=== PATIENT | female | born 1950 | race Caucasian/White ===

== ENCOUNTER 2017-11-07 09:29 | Emergency (ER) | payer OTHER ==
[2017-11-07 10:31] LABS: Bilirubin Small (Negative); Blood, Urine Large (Negative); Clarity Turbid (Clear); Glucose, Urine (Dipstick) Negative (Negative); Leukocyte Trace (Negative); Nitrite Negative (Negative); Protein, Urine (Dipstick) > or equal to 300 mg/dL (Neg-Trace); Specific Gravity, Urine 1.025 (1.005-1.030); Urobilinogen 0.2 mg/dL (0.2-1.0); pH, Urine 5.5 (5.0-9.0)
[2017-11-07 10:36] LABS: Hemoglobin 13.5 g/dL (12.0-16.0); Mean Corpuscular HGB CONC 34.9 g/dL (32.0-36.0); Mean Corpuscular Hemoglobin 29.8 pg (27.0-31.0); Mean Corpuscular Volume 85.4 fl (81.0-99.0); Mean Platelet Volume 5.7 fL (7.4-10.4); Platelet Count 337 thou/uL (130-400); RBC Distribution Width 11.7 % (11.5-14.5); Red Blood Cell (RBC) Count 4.54 mill/uL (4.20-5.40); White Blood Cell (WBC) Count 21.6 thou/uL (4.8-10.8)
[2017-11-07 10:37] LABS: ALT (SGPT) 14 U/L (8-55); AST (SGOT) 11 U/L (5-34); Albumin 3.9 g/dL (3.4-4.8); Alkaline Phosphatase 96 U/L (40-150); Anion Gap 20 mmol/L (10-20); BUN (Urea Nitrogen) 23 mg/dL (9.8-20.1); Bilirubin, Total 0.6 mg/dL (0.2-1.2); Calc. Creatinine Clearance 0 mL/min (70-130); Calcium 9.6 mg/dL (7.8-10.44); Carbon Dioxide 22 mmol/L (23-31); Chloride 100 mmol/L (98-107); Estimated GFR-MDRD 50; Globulin 3.2 g/dL (2.4-3.5); Glucose 239 mg/dL (80-115); Lipase 13 U/L (8-78); Potassium 3.6 mmol/L (3.5-5.1); Protein, Total 7.1 g/dL (6.0-8.3); Sodium 138 mmol/L (136-145)
[2017-11-07] MEDS ORDERED: Ondansetron HCl/PF 4 MG/2 ML Vial ONE (10:38)
[2017-11-07] MEDS ORDERED: Famotidine In NaCl 20 mg/50 ml Premix Bag ONE (10:38)
[2017-11-07 10:41] LABS: Bacteria/HPF 2+ HPF (None Seen); Crystals/HPF 1+ AMORPH URATES HPF (Negative); Squamous Epithelial 0-3 HPF (0-3)
[2017-11-07 10:54] LABS: Band 6 % (5-11); Lymphocytes 11 % (21-51); MDiff Complete? YES; Monocytes 2 % (0-10); Neutrophil 81 % (42-75); PLT Morphology Comment Appears Adequate; RBC Morphology Normal
[2017-11-07] MEDS ORDERED: Sodium Chloride 0.9% 100 ML ONE (11:01)
[2017-11-07] MEDS ORDERED: cefTRIAXone\\ROCEPHIN 2 GM VIAL ONE (11:01)
--- NOTE | 2017-11-07 21:29 | RAD ---
PORTABLE CHEST 11/07/17 An AP portable film at 1012 shows a normal sized heart and clear lungs. No infiltrate or effusion was seen. There is no vascular congestion or edema. The trachea is midline. IMPRESSION: No acute thoracic findings. POS: HOME
== END 2017-11-07 12:40 | disposition home or self-care (01) ==
LOC: BURERS 09:29
DX: N30.01 Acute cystitis with hematuria (principal); E86.0 Dehydration; E10.9 Type 1 diabetes mellitus without complications; K21.9 Gastro-esophageal reflux disease without esophagitis; I10 Essential (primary) hypertension; Z79.899 Other long term (current) drug therapy
CPT/HCPCS: 36416; 71045; 80053; 81003; 81015; 83605; 83690; 85025; 87040; 87077; 87086; 87186; 96361; 96365; 96367; 96375; 36415-59; J0696; J2405; J7050